=== PATIENT | male | born 1960 | race Asian ===

== ENCOUNTER 2017-10-13 23:30 | Inpatient (IN) | payer OTHER ==
[~2017-10-13] VITALS: Ht 172.7 cm; Wt 87.2 kg
[2017-10-13 23:34] VITALS: Ht 172.7 cm; Wt 87.2 kg
[2017-10-14] VITALS (7 sets, daily range): BP systolic 115–162; BP diastolic 72–94
[2017-10-14 00:47] LABS: BASOPHIL % 0.2 % (0-2); PLATELET COUNT 310 x10^3mcL (130-400); RED CELL DISTRIBUTION WIDTH 12.8 % (11.5-14.5)
[2017-10-14 00:56] LABS: CALCIUM 8.7 mg/dL (8.5-10.1); CARBON DIOXIDE 30.8 mmol/L (21-32); CHLORIDE SERUM 104 mmol/L (98-107); CREATININE SERUM 0.8 mg/dL (0.7-1.3); GFR1 > 60 mL/min; GLUCOSE SERUM 109 mg/dL (74-106); SODIUM SERUM 141 mmol/L (136-145)
[2017-10-14 01:02] LABS: ALBUMIN 3.4 g/dL (3.4-5.0); ALKALINE PHOSPHATASE 68 U/L (46-116); ALT/SGPT 35 U/L (16-63); AST/SGOT 25 U/L (15-37); BILIRUBIN TOTAL 0.28 mg/dL (0.20-1.00); TOTAL PROTEIN, SERUM 7.4 g/dL (6.4-8.2)
[2017-10-14 04:32] LABS: T3 TOTAL 1.11 ng/mL
[2017-10-14 04:35] LABS: FREE T4 0.93 ng/dL (0.76-1.46); FREE THYROXINE INDEX 2.7 ug/dL (1.4-4.5); T4(THYROXINE) 8.1 ug/dL (4.7-13.3)
[2017-10-14 04:36] LABS: MAGNESIUM 2.1 mg/dL (1.8-2.4); PHOSPHOROUS 3.5 mg/dL (2.5-4.9)
[2017-10-14 04:40] LABS: CHOLESTEROL/HDL RATIO 5.4
[2017-10-14 10:25] LABS: microscopic required? NO
[2017-10-14 10:51] LABS: urine erythrocyte NEGATIVE (NEGATIVE)
[2017-10-14] MEDS ORDERED: LIPI10 PO (15:10)
[2017-10-14] MEDS ORDERED: ZES5 PO (15:11)
[2017-10-14] MEDS ORDERED: TOPROL XL25 MG PO (16:14)
== END 2017-10-14 16:40 | disposition home or self-care (01) | DRG 203 ==
LOC: ED 23:30 → DU 10-14 03:21
PROVIDERS: Emergency Medicine; Internal Medicine
DX: R07.89 Other chest pain (principal); E78.5 Hyperlipidemia, unspecified; M45.9 Ankylosing spondylitis of unspecified sites in spine; R73.03 Prediabetes
CPT/HCPCS: 83880; 84439; 85378; J7030; Q0092

== ENCOUNTER 2018-06-02 21:02 | Emergency (ER) | payer SELFPAY ==
[~2018-06-02] VITALS: Ht 172.7 cm; Wt 84.8 kg
[~2018-06-02 21:02] MED LIST: LIPI10 PO; TOPROL XL25 MG PO; ZES5 PO
[2018-06-02 21:25] VITALS: Ht 172.7 cm; Wt 84.8 kg
[2018-06-02 23:31] VITALS: BP 157/95
== END 2018-06-02 23:31 | disposition short-term general hospital (02) ==
LOC: ED 21:02
DX: H40.211 Acute angle-closure glaucoma, right eye (principal); M45.9 Ankylosing spondylitis of unspecified sites in spine; I10 Essential (primary) hypertension; E78.00 Pure hypercholesterolemia, unspecified
CPT/HCPCS: Q0162